=== PATIENT | male | born 1970 | race Caucasian/White ===

== ENCOUNTER 2019-04-12 17:04 | Inpatient (IN) | payer OTHER ==
[~2019-04-12] VITALS: Ht 185.4 cm; Wt 127.0 kg
[2019-04-12] MEDS ORDERED: AMIODARONE HCL200 MG PO (17:48)
[2019-04-12] MEDS ORDERED: CARVEDILOL25 MG PO (17:48)
[2019-04-12] MEDS ORDERED: ALDACTONE25 MG PO (17:49)
[2019-04-12] MEDS ORDERED: FUROSEMIDE20 MG PO (17:49)
[2019-04-12] MEDS ORDERED: ELIQUIS5 MG PO (17:49)
[2019-04-12] MEDS ORDERED: DIGOX125 MCG PO (17:49)
[2019-04-12] MEDS ORDERED: FARXIGA10 MG PO (17:50)
--- NOTE | 2019-04-12 17:50 | NUR ---
PT EN [facility] [facility] [place] LA CUAL REFIERE BASHIR TENIDO VOMITOS, DEBILIDAD Y VOMITOS DESDE HOY. PT REFIERE DOLOR ABDOMINAL E INAPETENCIA. SE OBSERVA PT CON ICTERICIA.
== END 2019-04-19 21:30 | disposition expired | DRG 435 ==
LOC: ER 17:04 → SURH 19:24
PROVIDERS: ADMIT Internal Medicine Hematology & Oncology
PROC: BW21ZZZ Computerized Tomography (CT Scan) of Abdomen and Pelvis (ICD-10-PCS; 2019-04-12)
PROC: 0W9F30Z Drainage of Abdominal Wall with Drainage Device, Percutaneous Approach (ICD-10-PCS; principal; 2019-04-14)
PROC: BT43ZZZ Ultrasonography of Bilateral Kidneys (ICD-10-PCS; 2019-04-14)
PROC: 30233R1 Transfusion of Nonautologous Platelets into Peripheral Vein, Percutaneous Approach (ICD-10-PCS; 2019-04-17)
DX: C22.0 Liver cell carcinoma (principal); K76.7 Hepatorenal syndrome; K72.01 Acute and subacute hepatic failure with coma; I42.0 Dilated cardiomyopathy; R18.8 Other ascites; D68.4 Acquired coagulation factor deficiency; N17.8 Other acute kidney failure; E87.1 Hypo-osmolality and hyponatremia; E83.110 Hereditary hemochromatosis; G89.3 Neoplasm related pain (acute) (chronic); I95.89 Other hypotension; E86.0 Dehydration; E11.9 Type 2 diabetes mellitus without complications; E66.8 Other obesity; K29.00 Acute gastritis without bleeding; M54.5 Low back pain; I10 Essential (primary) hypertension; R45.89 Other symptoms and signs involving emotional state; Z66 Do not resuscitate; Z95.810 Presence of automatic (implantable) cardiac defibrillator